=== PATIENT | female | born 1940 | race African-American/Black ===

== ENCOUNTER → 2017-02-13 | Outpatient (CLI) | payer MEDICARE, OTHER ==
[2017-02-13 15:33] LABS: HEMATOCRIT 31.8 % (36.0-47.0); HEMOGLOBIN 10.6 g/dL (12.0-15.5)
[2017-02-13 15:39] LABS: ALBUMIN 4.1 g/dL (3.4-5.0); CALCIUM 8.5 mg/dL (8.5-10.1); CREATININE 1.2 mg/dL (0.6-1.0); PHOSPHORUS 4.3 mg/dL (2.6-4.7); POTASSIUM 3.9 mmol/L (3.5-5.1)
--- NOTE | 2017-02-13 16:38 | RAD ---
Indication cystic kidney disease. Grayscale imaging targeted to the kidneys was performed. Note is made of a previous examination 03/06/2016. The right kidney measures 10.6 x 5.9 x 5.1 cm. There are 2 hypoechoic masses, compatible with cysts. One is slightly larger than on the previous exam now measuring approximately 1.1 cm in greatest dimension. The smaller measures approximately 1 cm.. No hydronephrosis or solid mass is seen. The left kidney measures 9.8 x 5.6 x 5.2 cm. There are 2 hypoechoic masses, compatible with cysts. One is slightly larger than on the previous exam. The larger cyst measures approximately 1.9 cm in greatest dimension. The smaller cyst is unchanged A solid mass is not seen. There is no hydronephrosis The urinary bladder is largely collapsed and poorly evaluated with this exam. IMPRESSION: Bilateral renal cysts similar to the previous exam
[2017-02-14 04:10] LABS: CALCIUM PTH 8.9 mg/dL (8.7-10.3); CREAT RD UR 190.5 mg/dL (Not Estab.); CREATININE PTH 1.16 mg/dL (0.57-1.00); MICRO CREAT RATIO 71.3 mg/g creat (0.0-30.0); MICROALB RD UR 135.9 ug/mL (Not Estab.); PHOSPHORUS PTH 4.3 mg/dL (2.5-4.5); PTH INTACT 52 pg/mL (15-65); UR PROTEIN RD 32.5 mg/dL (Not Estab.); eGFR IF AFRICAN AMERICAN 53 (>59); eGFR IF NONAFRICAN AMERICAN 46 (>59)
[2017-02-14 13:42] LABS: RETIC COUNT 4.3 % (0.5-2.5)
== END | disposition home or self-care (01) ==
LOC: US 14:06
PROVIDERS: ATTEND Internal Medicine Nephrology
DX: Z12.31 Encounter for screening mammogram for malignant neoplasm of breast (principal); I12.9 Hypertensive chronic kidney disease with stage 1 through stage 4 chronic kidney disease, or unspecified chronic kidney disease; N18.3 Chronic kidney disease, stage 3 (moderate); D64.9 Anemia, unspecified; Q61.9 Cystic kidney disease, unspecified
CPT/HCPCS: 36415; 76770; 77063; 80069; 82043; 82570; 82607; 83540; 83735; 83970; 84156; 85014; 85018; 85045; G0202; 77067

== ENCOUNTER → 2020-06-21 | Outpatient (CLI) | payer MEDICARE, OTHER ==
--- NOTE | 2020-06-21 17:27 | RAD ---
EXAM: Chest, 2 views. HISTORY: Dyspnea on exertion. COMPARISON: None. FINDINGS: 2 views of the chest are obtained. There is no infiltrate, pleural effusion or pneumothorax. The heart is normal in size. There is a there are chronic appearing mild to moderate thoracic vertebral compression fractures. IMPRESSION: No acute pulmonary finding. Electronically signed by: Montse Ahumada MD (06/21/2020 5:24 PM) [id number]
== END | disposition home or self-care (01) ==
LOC: RAD 15:17
PROVIDERS: ATTEND Physician Assistant
DX: R06.00 Dyspnea, unspecified (principal)
CPT/HCPCS: 71046